=== PATIENT | female | born 1965 | race Caucasian/White ===

== ENCOUNTER 2019-11-05 15:09 | Emergency (ER) | payer BC, OTHER ==
--- NOTE | 2019-11-05 15:19 | PDOC ---
Rapid Medical Evaluation Medical Evaluation: Allergies Allergy/AdvReac Type Severity Reaction Status Date / Time No Known Allergies Allergy Verified 11/05/19 15:16 Vital Signs Temp Pulse Resp BP Pulse Ox 98.2 F 126 H 19 140/91 98 11/05/19 15:10 11/05/19 15:10 11/05/19 15:10 11/05/19 15:10 11/05/19 15:10 11/05/19 15:17 I have performed a brief in-person evaluation of this patient. The patient presents with a chief complaint of:fever x 4 days w/ cough w/ ? sob Pertinent physical exam findings:HR 126, afebrile w/ clear lungs I have ordered the following:cxr The patient will proceed to the ED for further evaluation. Discharge Disposition - Diagnosis URI (upper respiratory infection) Qualifiers: URI type: unspecified viral URI Qualified Code(s): J06.9 - Acute upper respiratory infection, unspecified - Referrals - Patient Instructions - Post Discharge Activity
[2019-11-05 15:28] VITALS: BP 140/91; PULSE 126; TEMP 98.2
--- NOTE | 2019-11-05 15:55 | PDOC ---
Rapid Medical Evaluation Time Seen by Provider: 11/05/19 15:53 Medical Evaluation: Allergies Allergy/AdvReac Type Severity Reaction Status Date / Time No Known Allergies Allergy Verified 11/05/19 15:16 Vital Signs Temp Pulse Resp BP Pulse Ox 98.2 F 126 H 19 140/91 98 11/05/19 15:10 11/05/19 15:10 11/05/19 15:10 11/05/19 15:10 11/05/19 15:10 11/05/19 15:54 HPI: COVID-19 CDC guideline data points: The patient is a 53 y/o F presents with no exposure to, suspected, or confirmed] COVID-19 with associated symptoms of dry cough, mild SOB, and has no med hx ROS: NEGATIVE: difficulty breathing, shortness of breath, chest pain, lightheadedness, dizziness, nausea, vomiting and diarrhea. Other 12 point ROS reviewed and negative. Exam: General: NAD, Well-Appearing, Awake, Alert Oriented x3. Vital signs stable. ENT: No rhinorrhea or nasal congestion. Neck: FROM, no midline tenderness. Lungs: Clear to auscultation bilaterally without wheezes, rhonchi or rales. Normal excursion. Patient is able to speak in full sentences. Heart: HR: 126 Regular rhythm, S1-S2 present, no murmurs rubs or gallops. Abdomen: Non-distended. MSK/Extremities: No decrease ROM, No obvious deformities. No obvious cyanosis noted. Neuro: Normal Gait, Cranial Nerves II through XII Grossly Intact. Skin: No obvious rashes, bruising. Color Normal Appearing. Assessment/Plan: [Cough/fever] Patient tachy. Pt ordered for CXR\ ASSESSMENT: Denies recent travel and known Covid exposure. 11/05/19 17:27 cxr shows early heriberto infitrate. pt ambulated and after ambulation on ED ramp pt s o2 sat remained t 98% on RA with mask, [id number]. dc with zpak and covid swab sent 11/05/19 17:31 Discharge Disposition - Diagnosis Pneumonia - Discharge Dispostion Disposition: HOME Condition at time of disposition: Good Last Admission D/C Date: 03/31/18 - Referrals Referrals: Sujata Valente MD [Primary Care Provider] - - Patient Instructions Printed Discharge Instructions: DI for Pneumonia -- Adult Additional Instructions: PLease take antibiotic as prescribed. Please remain on quarantine until you are notified with covid results. Take tylenol for pain and fever - Post Discharge Activity
== END 2019-11-05 17:44 | disposition home or self-care (01) ==
LOC: JER 15:09
DX: J18.9 Pneumonia, unspecified organism (principal)
CPT/HCPCS: 71045-TC-FY; 99283-25; U0002

== ENCOUNTER 2020-08-19 19:23 | Emergency (ER) | payer BC ==
[2020-08-19 19:27] VITALS: BMI 32.9
[2020-08-19] MEDS ORDERED: ONDANSETRON 4 MG/2 ML VIAL IVPUSH ONE (22:53)
[2020-08-19] MEDS ORDERED: LACTATED RINGERS SOLUTION 1000 ML INFUS.BAG IV ONE (22:53)
[2020-08-19] MEDS ORDERED: ACETAMINOPHEN 1000 MG/100 ML BAG IVPB ONE (22:53)
[2020-08-19] MEDS ORDERED: FAMOTIDINE 20 MG/50 ML IVPB 20 MG/50 ML MG IVPB ONE ×2 (22:54→23:16)
[2020-08-19] MEDS ORDERED: MAG HYDROX/AL HYDROX/SIMETH -MYLANTA- ORAL SUSPENSION PO ONE (22:54)
[2020-08-19] MEDS ORDERED: MAG HYDROX/AL HYDROX/SIMETH 30 ML UNIT-DOSE CUP ONE (23:16)
[2020-08-19] MEDS ORDERED: ACETAMINOPHEN INJECTION 100 ML IVPB ONE (23:16)
[2020-08-19] MEDS ORDERED: ONDANSETRON 4 MG/2 ML VIAL ONE (23:16)
[2020-08-19 23:46] LABS: BASO % 0.2 % (0-2.0); HEMATOCRIT 43.4 % (32.4-45.2); HEMOGLOBIN 14.5 GM/dL (10.7-15.3); LYMPH % 1.9 % (8-40); MCH 28.6 pg (25.7-33.7); MCHC 33.4 g/dl (32.0-36.0); MEAN CELL VOLUME 85.7 fl (80-96); MEAN PLT VOLUME 8.7 fl (7.5-11.1); MONO % 3.2 % (3.8-10.2); NEUT % 94.7 % (42.8-82.8); PLATELET COUNT 292 K/MM3 (134-434); RBC 5.07 M/mm3 (3.60-5.2); RDW 12.7 % (11.6-15.6); WHITE BLOOD COUNT 24.7 K/mm3 (4.0-10.0)
[2020-08-20 00:05] LABS: ALBUMIN 3.9 g/dl (3.4-5.0); CALCIUM 9.2 mg/dL (8.5-10.1)
[2020-08-20 00:06] LABS: BLOOD UREA NITROGEN 25.1 mg/dL (7-18)
[2020-08-20 00:09] LABS: CREATININE 0.8 mg/dL (0.55-1.3)
[2020-08-20 00:10] LABS: BILIRUBIN,TOTAL 0.7 mg/dL (0.2-1)
[2020-08-20] MEDS ORDERED: PANTOPRAZOLE 20 MG TABLET PO ONE ×2 (00:34→02:21)
[2020-08-20] MEDS ORDERED: LACTATED RINGERS SOLUTION 1000 ML INFUS.BAG IV ONE (00:50)
[2020-08-20 02:27] LABS: EPI CELLS 7 /uL (0-25.1); HYALINE CASTS 1 /uL (0-3.1); PH,URINE 5.5 (5.0-8.0); URINE APPEARANCE Error; URINE BACTERIA 92 /uL (0-1359); URINE BILIRUBIN NEGATIVE (NEGATIVE); URINE COLOR YELLOW; URINE GLUCOSE (UA) NEGATIVE (NEGATIVE); URINE KETONE 1+ (NEGATIVE); URINE LEUK ESTERASE NEGATIVE (NEGATIVE); URINE NITRITE NEGATIVE (NEGATIVE); URINE PROTEIN 1+ (NEGATIVE); URINE RBC 28 /uL (0-23.9); URINE UROBILINOGEN 0.2 mg/dL (0.2-1.0); URINE WBC 7 /uL (0-25.8)
[2020-08-20 03:21] LABS: ANISOCYTOSIS 0; MACROCYTOSIS 0; PLATELET ESTIMATE NORMAL
[2020-08-20 04:02] VITALS: BP 124/82; PULSE 75; TEMP 98.8
== END 2020-08-20 04:00 | disposition home or self-care (01) ==
LOC: JER 19:23
PROC: 3E0333Z Introduction of Anti-inflammatory into Peripheral Vein, Percutaneous Approach (ICD-10-PCS; principal; 2020-08-19)
PROC: 3E033GC Introduction of Other Therapeutic Substance into Peripheral Vein, Percutaneous Approach (ICD-10-PCS; 2020-08-19)
PROC: 3E033GC Introduction of Other Therapeutic Substance into Peripheral Vein, Percutaneous Approach (ICD-10-PCS; 2020-08-19)
DX: R11.2 Nausea with vomiting, unspecified (principal)
CPT/HCPCS: 36415; 76705-TC; 80053; 81003; 83690; 85025; 99284-25; J0131

== ENCOUNTER 2021-01-29 00:10 | Observation (INO) | payer BC ==
[2021-01-29] MEDS ORDERED: SODIUM CHLORIDE 1,000 ML IV STA (01:30)
[2021-01-29] MEDS ORDERED: ACETAMINOPHEN 1000 MG/100 ML VIAL (NON FORMULARY) IVPB ONE (01:30)
[2021-01-29] MEDS ORDERED: ONDANSETRON 4 MG/2 ML VIAL IVPUSH ONE (01:31)
[2021-01-29] MEDS ORDERED: ACETAMINOPHEN INJECTION 100 ML IVPB ONE (01:36)
[2021-01-29] MEDS ORDERED: ONDANSETRON 4 MG/2 ML VIAL ONE ×2 (01:37→12:04)
[2021-01-29 01:44] LABS: EPI CELLS 10 /uL (0-25.1); HYALINE CASTS 1 /uL (0-3.1); PH,URINE 8.5 (5.0-8.0); URINE APPEARANCE CLEAR; URINE BACTERIA 91 /uL (0-1359); URINE BILIRUBIN NEGATIVE (NEGATIVE); URINE COLOR YELLOW; URINE GLUCOSE (UA) NEGATIVE (NEGATIVE); URINE KETONE 1+ (NEGATIVE); URINE LEUK ESTERASE NEGATIVE (NEGATIVE); URINE NITRITE NEGATIVE (NEGATIVE); URINE PROTEIN 1+ (NEGATIVE); URINE RBC 129 /uL (0-23.9); URINE UROBILINOGEN 0.2 mg/dL (0.2-1.0); URINE WBC 11 /uL (0-25.8)
[2021-01-29 01:49] LABS: BASO % 0.5 % (0-2.0); EOS % 0.2 % (0-4.5); HEMATOCRIT 41.8 % (32.4-45.2); HEMOGLOBIN 14.3 GM/dL (10.7-15.3); LYMPH % 5.6 % (8-40); MCH 28.9 pg (25.7-33.7); MCHC 34.2 g/dl (32.0-36.0); MEAN CELL VOLUME 84.6 fl (80-96); MEAN PLT VOLUME 9.1 fl (7.5-11.1); MONO % 3.1 % (3.8-10.2); NEUT % 90.6 % (42.8-82.8); PLATELET COUNT 270 10^3/uL (134-434); RBC 4.94 M/mm3 (3.60-5.2); RDW 13.1 % (11.6-15.6); WHITE BLOOD COUNT 17.7 K/mm3 (4.0-10.0)
[2021-01-29 02:01] LABS: CALCIUM 9.7 mg/dL (8.5-10.1); CHLORIDE 102 mmol/L (98-107); SODIUM 139 mmol/L (136-145)
[2021-01-29 02:02] LABS: ALBUMIN 4.3 g/dl (3.4-5.0); ANION GAP 8 MMOL/L (8-16); CO2 29 mmol/L (21-32); GLUCOSE,RANDOM 140 mg/dL (74-106); LIPASE 85 U/L (73-393)
[2021-01-29 02:03] LABS: BLOOD UREA NITROGEN 13.1 mg/dL (7-18)
[2021-01-29 02:05] LABS: CREATININE 0.8 mg/dL (0.55-1.3); SGOT/AST 25 U/L (15-37); SGPT/ALT 60 U/L (13-61)
[2021-01-29 02:06] LABS: TOT PROT 8.6 g/dl (6.4-8.2)
[2021-01-29 02:08] LABS: ALK PHOS 124 U/L (45-117)
[2021-01-29 02:09] LABS: BILIRUBIN,TOTAL 0.6 mg/dL (0.2-1)
[2021-01-29] MEDS ORDERED: CEFTRIAXONE 1,000 MG in DEXTROSE 5%-WATER - 50 ML IVPB ONE (05:32)
[2021-01-29] MEDS ORDERED: METOCLOPRAMIDE HCL INJECTION 10 MG/2 ML VIAL IVPB ONE (05:36)
[2021-01-29] MEDS ORDERED: CEFTRIAXONE 1 GM/50 ML BAG ONE (05:37)
[2021-01-29] MEDS ORDERED: METOCLOPRAMIDE HCL INJECTION 10 MG/2 ML VIAL ONE (05:39)
[2021-01-29] MEDS ORDERED: PIPERACILLIN/TAZOB 3.375 GM 3.375 GM in DEXTROSE 5%-WATER - 50 ML IVPB ONE (05:50)
[2021-01-29] MEDS ORDERED: morphine SULFATE 4 MG/ML VIAL IVPUSH ONE (05:52)
[2021-01-29] MEDS ORDERED: PIPERACILLIN/TAZOB 3.375 GM 3.375 GM/50 ML BAG IVPB ONE ×2 (05:53→08:40)
[2021-01-29] MEDS ORDERED: SODIUM CHLORIDE 1,000 ML IV SCH ×2 (06:15→13:58)
[2021-01-29 06:32] LABS: INR 0.97 (0.83-1.09); PROTHROMBIN TIME (PATIENT) 11.8 SEC (9.7-13.0)
[2021-01-29] MEDS ORDERED: morphine SULFATE 4 MG/ML VIAL IVPUSH PRN (07:18)
[2021-01-29] MEDS ORDERED: MORPHINE SULFATE 2 MG/ML VIAL IVPUSH PRN (07:18)
[2021-01-29] MEDS ORDERED: PIPERACILLIN/TAZOB 3.375 GM 3.375 GM in DEXTROSE 5%-WATER - 50 ML IVPB SCH ×4 (10:00→18:00)
[2021-01-29] MEDS ORDERED: IBUPROFEN 800 MG/8 ML IJ IVPB PRN ×2 (11:55→13:58)
[2021-01-29] MEDS ORDERED: DEXAMETHASONE SOD PHOSPHATE 4 MG/1 ML VIAL ONE (12:04)
[2021-01-29] MEDS ORDERED: DESFLURANE GAS 240 ML BOTTLE IH ONE (12:04)
[2021-01-29] MEDS ORDERED: ROCURONIUM BROMIDE 50 MG/5 ML SYRINGE ONE (12:05)
[2021-01-29] MEDS ORDERED: MIDAZOLAM HCL 2 MG/2 ML SINGLE DOSE VIAL ONE (12:05)
[2021-01-29] MEDS ORDERED: ONDANSETRON 4 MG/2 ML VIAL IVPUSH PRN (12:34)
[2021-01-29] MEDS ORDERED: ACETAMINOPHEN 325 MG TABLET (FP) PO PRN (12:34)
[2021-01-29] MEDS ORDERED: oxyCODONE HCL 5 MG TABLET PO PRN (12:34)
[2021-01-29] MEDS ORDERED: morphine SULFATE 4 MG/ML VIAL IVPB PRN (12:34)
[2021-01-29] MEDS ORDERED: GLYCOPYRROLATE 0.2 MG/1 ML VIAL ONE (13:05)
[2021-01-29] MEDS ORDERED: NEOSTIGMINE METHYLSULFATE 0.5 MG/1 ML - 10 ML MDV ONE (13:05)
[2021-01-29] MEDS ORDERED: PIPERACILLIN/TAZOBACTAM 3.375 GM VIAL IVPB ONE (18:11)
[2021-01-29] MEDS ORDERED: DEXTROSE 5%-WATER - 50 ML IVPB ONE (18:11)
[2021-01-29] MEDS: PIPERACILLIN/TAZOB 3.375 GM 3.375 GM in DEXTROSE 5%-WATER - 50 ML IVPB SCH (18:12)
[2021-01-29 18:40] VITALS: BMI 33.0
[2021-01-30] MEDS ORDERED: DEXTROSE 5%-WATER - 50 ML IVPB ONE ×2 (01:19→09:21)
[2021-01-30] MEDS ORDERED: PIPERACILLIN/TAZOBACTAM 3.375 GM VIAL IVPB ONE ×2 (01:19→09:21)
[2021-01-30] MEDS: PIPERACILLIN/TAZOB 3.375 GM 3.375 GM in DEXTROSE 5%-WATER - 50 ML IVPB SCH ×2 (01:56→09:52)
[2021-01-30] MEDS ORDERED: ENOXAPARIN NA (PORCINE) 40 MG/0.4 ML DISP.SYRIN SQ SCH (10:00)
[2021-01-30] MEDS ORDERED: PANTOPRAZOLE SODIUM 40 MG VIAL IVPUSH SCH (10:00)
[2021-01-30 12:23] LABS: BILIRUBIN,DIRECT 0.3 mg/dL (0.0-0.2)
[2021-01-30 12:24] LABS: BILIRUBIN,TOTAL 0.7 mg/dL (0.2-1); TOT PROT 6.7 g/dl (6.4-8.2)
[2021-01-30 12:26] LABS: ALBUMIN 3.2 g/dl (3.4-5.0)
[2021-01-30 14:52] VITALS: BP 112/62; PULSE 78; TEMP 98.1
== END 2021-01-30 19:21 | disposition home or self-care (01) ==
LOC: JER 00:10 → JERBED 06:26 → UNDOADMOB 06:26 → INTOOBSV 06:26 → J8W 09:21 → JERBED 09:21 → J8W 10:56
PROVIDERS: ADMIT Internal Medicine; ATTEND Internal Medicine
PROC: 3E03329 Introduction of Other Anti-infective into Peripheral Vein, Percutaneous Approach (ICD-10-PCS; 2021-01-29)
PROC: 3E0337Z Introduction of Electrolytic and Water Balance Substance into Peripheral Vein, Percutaneous Approach (ICD-10-PCS; 2021-01-29)
PROC: 3E033GC Introduction of Other Therapeutic Substance into Peripheral Vein, Percutaneous Approach (ICD-10-PCS; 2021-01-29)
PROC: 0DTJ4ZZ Resection of Appendix, Percutaneous Endoscopic Approach (ICD-10-PCS; principal; 2021-01-29 12:27)
DX: K35.30 Acute appendicitis with localized peritonitis, without perforation or gangrene (principal); R10.33 Periumbilical pain; I10 Essential (primary) hypertension; E78.5 Hyperlipidemia, unspecified; E66.9 Obesity, unspecified; Z68.33 Body mass index [BMI] 33.0-33.9, adult; K83.8 Other specified diseases of biliary tract; Z86.16 Personal history of COVID-19; R93.5 Abnormal findings on diagnostic imaging of other abdominal regions, including retroperitoneum; Q61.3 Polycystic kidney, unspecified; K76.9 Liver disease, unspecified
CPT/HCPCS: 36415; 71046-TC-FY; 74177-TC; 76705-TC; 80053; 80076; 81003; 83690; 84484; 85025; 85610; 85730; 86850; 86900; 86901; 87086; 87186; 88304-TC; 93005; 93010; 94010; 94760; 99285-25; C9803; G0378; J0131; Q9967; U0003; U0005